=== PATIENT | female | born 1970 | race Hispanic/Latino ===

== ENCOUNTER 2021-04-01 16:55 | Emergency (ER) | payer OTHER ==
--- NOTE | 2021-04-01 18:12 | Emergency Department Report ---
ED General Adult HPI - General Chief complaint: Skin Rash Stated complaint: L HAND PAIN Time Seen by Provider: 04/01/21 18:00 Source: patient Mode of arrival: Ambulatory Limitations: No Limitations - History of Present Illness Initial comments: 50-year-old female patient with history of HIV presents with complaints of left hand rash for 2 months now beginning to show on her right hand over the past few days. She states the rash is dry and painful and red. She reports she is compliant with her antiretroviral therapy and states she is undetectable. No fever/chills/sweats per patient or difficulty moving her hands. Pain of the hands worsens with extension of the palm and fingers due to the dryness per patient. She states Neosporin seems to help some. No prior history of eczema per patient - Related Data Previous Rx's Medication Instructions Recorded Last Taken Type Clobetasol Propionate [Temovate 1 gm TP BID PRN #1 oint...g. 04/01/21 Unknown Rx 0.05%] predniSONE [Deltasone] 20 mg PO BID 2 Days #4 tab 04/01/21 Unknown Rx Allergies Allergy/AdvReac Type Severity Reaction Status Date / Time No Known Allergies Allergy Verified 04/01/21 18:34 ED Review of Systems ROS: Stated complaint: L HAND PAIN Other details as noted in HPI Constitutional: denies: chills, fever, malaise Musculoskeletal: denies: joint swelling, arthralgia Skin: rash Neurological: denies: numbness, paresthesias ED Past Medical Hx - Past Medical History Previous Medical History?: Yes Hx HIV: Yes - Surgical History Past Surgical History?: Yes Additional Surgical History: Facial reconstruction, Oral surgery, Tubaligation - Social History Smoking Status: Current Every Day Smoker - Medications Home Medications: Home Medications Medication Instructions Recorded Confirmed Last Taken Type Clobetasol Propionate [Temovate 1 gm TP BID PRN #1 oint...g. 04/01/21 Unknown Rx 0.05%] predniSONE [Deltasone] 20 mg PO BID 2 Days #4 tab 04/01/21 Unknown Rx ED Physical Exam - General Limitations: No Limitations General appearance: alert, in no apparent distress - Head Head exam: Present: atraumatic, normocephalic - Eye Eye exam: Present: normal appearance - Respiratory Respiratory exam: Absent: respiratory distress - Cardiovascular Cardiovascular Exam: Present: regular rate - Neurological Exam Neurological exam: Present: alert, oriented X3 - Psychiatric Psychiatric exam: Present: normal affect, normal mood - Skin Skin exam: Present: warm, dry, intact, normal color, rash (Dry minimally erythemic rash with plaques noted to left palm with moderate tenderness to palpation; minimal rash noted to right palm with the same characteristics) ED Course Vital Signs 04/01/21 04/01/21 17:46 18:21 Temperature 98.2 F Pulse Rate 77 80 Respiratory 18 18 Rate Blood Pressure 120/57 Blood Pressure 125/78 [Left] O2 Sat by Pulse 99 97 Oximetry ED Medical Decision Making - Medical Decision Making 50-year-old female patient with history of HIV presents with complaints of left hand rash for 2 months now beginning to show on her right hand over the past few days. She states the rash is dry and painful and red. She reports she is compliant with her antiretroviral therapy and states she is undetectable. No fever/chills/sweats per patient or difficulty moving her hands. Pain of the hands worsens with extension of the palm and fingers due to the dryness per patient. She states Neosporin seems to help some. No prior history of eczema per patient Rash appears to be psoriasis. Discussed importance of follow-up with primary care or rheumatology for further testing. Patient will be treated with clobetasol. Discussed signs symptoms that should prompt immediate return to the emergency department in detail patient verbalized understanding. Critical care attestation.: If time is entered above; I have spent that time in minutes in the direct care of this critically ill patient, excluding procedure time. ED Disposition Clinical Impression: Psoriasis Disposition: 01 HOME / SELF CARE / HOMELESS Is pt being admited?: No Condition: Stable Instructions: Psoriasis Additional Instructions: I recommend you purchase [id number] Aquaphor cream and ointment and use daily to moisturize her hand. Start with the cream after washing your hands or wetting the hands and allow the cream to dry. Then apply the ointment to still in the moisture. Prescriptions: predniSONE [Deltasone] 20 mg PO BID 2 Days #4 tab Clobetasol Propionate [Temovate 0.05%] 1 gm TP BID PRN #1 oint...g. PRN Reason: rash Referrals: PRIMARY CARE, [Primary Care Provider] - 3-5 Days [facility] [Provider Group] - 3-5 Days Forms: Work/School Release Form(ED)
[2021-04-01 18:22] VITALS: BP 125/78
[2021-04-01] MEDS ORDERED: HYDROcodone/ACETAMINOPHEN 5-325 MG TAB PO ONE (18:25)
[2021-04-01] MEDS ORDERED: predniSONE 20 MG TAB PO NR (19:00)
== END 2021-04-01 18:34 | disposition home or self-care (01) ==
LOC: ED 16:55
DX: L40.9 Psoriasis, unspecified (principal); F17.200 Nicotine dependence, unspecified, uncomplicated; Z79.899 Other long term (current) drug therapy
CPT/HCPCS: 99282